=== PATIENT | male | born 1950 | race Caucasian/White ===

== ENCOUNTER → 2019-02-25 | Outpatient (CLI) | payer BC ==
[2019-02-25 16:30] LABS: PLATELET COUNT, AUTOMATED 220 K/uL (150-450)
[2019-02-25 16:36] LABS: LDL CHOLESTEROL 87 mg/dl
== END ==
LOC: LAB 16:10
PROVIDERS: ATTEND Nurse Practitioner Family
DX: Z00.00 Encounter for general adult medical examination without abnormal findings (principal)
CPT/HCPCS: 36415; 82040; 82247; 82310; 82374; 82435; 82465; 82565; 82947; 83718; 84075; 84132; 84153; 84155; 84295; 84450; 84460; 84478; 84520; 85025